=== PATIENT | male | born 1950 | race Caucasian/White ===

== ENCOUNTER 2016-09-17 14:53 | Inpatient (IN) | payer MEDICARE ==
[~2016-09-17] VITALS: Ht 170.2 cm; Wt 98.0 kg
[2016-09-18] MEDS ORDERED: ASPI81CH37 CHEW (09:04)
[2016-09-18] MEDS ORDERED: CHLO25TA2 PO (09:16)
[2016-09-18] MEDS ORDERED: LISI40TA PO (09:16)
[2016-10-05] MEDS ORDERED: POVIDONE IODINE 7.5% SCRUB 118 ML BOTTLE TOP SCH (05:30)
[2016-10-05] MEDS ORDERED: CHLORHEXIDINE GLUCONATE 4% SOLN 120 ML BTL TOP SCH (05:30)
[2016-10-05] MEDS ORDERED: INSULIN HUMAN REGULAR 1,000 UNITS/10 ML VIAL SQ PRN (05:45)
[2016-10-05] MEDS ORDERED: METOPROLOL TARTRATE 25 MG TAB PO PRN (05:45)
[2016-10-05 05:46] VITALS: BP 151/81; PULSE 92; RESP 16; TEMP 100; O2SAT 95
[2016-10-05] MEDS ORDERED: DEXAMETHASONE SOD PHOS 20 MG/5 ML VIAL IV SCH (06:00)
[2016-10-05] MEDS ORDERED: VANCOMYCIN 1000 MG/NS 250 ML (for <70 kg) IV SCH ×2 (06:00)
[2016-10-05] MEDS ORDERED: ceFAZolin 2 GM PREMIX 50 ML IV SCH (06:00)
[2016-10-05] MEDS ORDERED: GENTAMICIN SULFATE 80 MG/2 ML VIAL ONE (06:03)
[2016-10-05] MEDS ORDERED: FAMOTIDINE 20 MG/2 ML VIAL ONE (06:35)
[2016-10-05] MEDS ORDERED: DEXAMETHASONE SOD PHOS 4 MG/ML VIAL ONE (06:35)
[2016-10-05] MEDS ORDERED: ACETAMINOPHEN 1000 MG/100 ML VIAL IV ONE (06:47)
[2016-10-05] MEDS ORDERED: SODIUM CHLORIDE 0.9% IV SCH (07:00)
[2016-10-05] MEDS ORDERED: ROPIVACAINE PERI-ARTICULAR INJECTION. PERIART SCH ×5 (07:00)
[2016-10-05] MEDS ORDERED: SODIUM CHLORID 0.9% 500 ML IV SCH (07:00)
[2016-10-05] MEDS ORDERED: TRANEXAMIC PERI-ARTICULAR 3,000 MG/NS 100 ML P-ARTICULR SCH ×2 (07:00)
[2016-10-05] MEDS ORDERED: EXPAREL PERI-ARTICULAR INJECTION (TOTAL VOL. 60 ML) P-ARTICULR SCH ×2 (07:00)
[2016-10-05] MEDS ORDERED: LACTATED RINGER'S 1000 ML IV SCH (07:00)
[2016-10-05] MEDS ORDERED: TRANEXAMIC ACID IV SCH (07:00)
[2016-10-05] MEDS ORDERED: SODIUM CHLORIDE 0.9% FLUSH 5 ML FLUSH IVF PRN (07:15)
[2016-10-05] MEDS ORDERED: MAGNESIUM HYDROXIDE SUSP 30 ML CUP PO PRN (07:15)
[2016-10-05] MEDS ORDERED: ACETAMINOPHEN/HYDROcodone 325 MG/7.5 MG TAB PO PRN (07:15)
[2016-10-05] MEDS ORDERED: ZOLPIDEM TARTRATE 5 MG TAB PO PRN (07:15)
[2016-10-05] MEDS ORDERED: BISACODYL 10 MG SUPP PR PRN (07:15)
[2016-10-05] MEDS ORDERED: NALOXONE HCL 0.4 MG/ML AMP IV PRN (07:15)
[2016-10-05] MEDS ORDERED: diphenhydrAMINE HCL 50 MG/ML VIAL IV PRN (07:15)
[2016-10-05] MEDS ORDERED: Post-op Orders (for Pharmacy) MISC XX ONE (07:15)
[2016-10-05] MEDS ORDERED: ALUMINUM/MAGNESIUM/SIMETH 30 ML CUP PO PRN (07:15)
[2016-10-05] MEDS ORDERED: ONDANSETRON HCL 4 MG/2 ML VIAL IVP PRN (07:15)
[2016-10-05] MEDS ORDERED: MORPHINE SULFATE 4 MG/ML INJ IV PUSH PRN (07:15)
[2016-10-05] MEDS ORDERED: HYDR-3288 PO (07:17)
[2016-10-05] MEDS ORDERED: APIX2.5T PO (07:17)
[2016-10-05] MEDS ORDERED: LISINOPRIL 20 MG TAB PO SCH (09:00)
[2016-10-05] MEDS ORDERED: NON-FORMULARY DRUG (Chlorthalidone 25 MG) PO SCH (09:00)
[2016-10-05] MEDS: SODIUM CHLORIDE 0.9% FLUSH 5 ML FLUSH IVF SCH ×2 (09:00→21:00)
[2016-10-05] MEDS ORDERED: MIDAZOLAM HCL 2 MG/2 ML VIAL ONE (09:23)
[2016-10-05] MEDS ORDERED: fentaNYL CITRATE 250 MCG/5 ML AMP ONE (09:23)
[2016-10-05] MEDS: SODIUM CHLOR 0.9% 1000 ML INJ 1,000 ML IV SCH ×2 (09:30→21:11)
[2016-10-05] MEDS ORDERED: DO NOT ADM ANY ANTICOAGULANT DRUGS XX PRN (09:45)
--- NOTE | 2016-10-05 09:45 | RADRPT ---
EXAM DATE/TIME: 10/05/2016 07:29 [facility] COMPARISON: No previous studies available for comparison. INDICATIONS : Post-op total left hip arthroplasty. MEDICAL HISTORY : None. SURGICAL HISTORY : None. ENCOUNTER: Initial ACUITY: 1 day PAIN SCORE: Non-responsive. LOCATION: Left hip. FINDINGS: AP and oblique views of the left hip were obtained and demonstrate the patient is status post arthrop lasty. The femoral and acetabular components are intact and in normal alignment. There is mild overly ing artifact. CONCLUSION: Status post left hip arthroplasty. Rene Gannon MD on October 05, 2016 at 9:43 Board Certified Radiologist. This report was verified electronically.
[2016-10-05] MEDS ORDERED: *morphine SULFATE 8 MG/ML PERIprocedure ONLY ONE (10:03)
[2016-10-05] MEDS ORDERED: BACITRACIN TOP OINT 15 GM TUBE ONE (10:14)
--- NOTE | 2016-10-05 10:42 | RADRPT ---
EXAM DATE/TIME: 10/05/2016 09:29 [facility] COMPARISON: No previous studies available for comparison. INDICATIONS : Post Op. Left hip surgery MEDICAL HISTORY : None. SURGICAL HISTORY : None. ENCOUNTER: Initial ACUITY: 1 day PAIN SCORE: 0/10 LOCATION: Left hip and pelvis FINDINGS: Examination of the left hip was performed with AP Pelvis. Left total hip arthroplasty. Both the femor al and acetabular components are appropriately positioned without dislocation. There is some degenera tive osteoarthritic changes in the right hip. Degenerative spurring the SI joints bilaterally with de generative disc disease in the lower lumbar spine. CONCLUSION: Left total hip arthroplasty is radiographically intact without fracture or dislocation. Quang Moyer MD on October 05, 2016 at 10:39 Board Certified Radiologist. This report was verified electronically.
[2016-10-05 11:00] VITALS: BP 126/70; PULSE 83; RESP 15; TEMP 98; O2SAT 95
[2016-10-05 12:00] VITALS: O2SAT 96
[2016-10-05] MEDS ORDERED: PROPOFOL 200 MG/20 ML AMP IV ONE (12:58)
[2016-10-05] MEDS ORDERED: LACTATED RINGER'S 1000 ML INJ 1,000 ML IV ONE (12:59)
[2016-10-05] MEDS ORDERED: NEOSTIGMINE 3 MG/3 ML SYR IV ONE (12:59)
[2016-10-05] MEDS ORDERED: ONDANSETRON HCL 4 MG/2 ML VIAL IV PUSH ONE (12:59)
[2016-10-05] MEDS: SENNOSIDES 8.6 MG TAB PO SCH (15:30)
[2016-10-05] MEDS ORDERED: ENALAPRILAT 1.25 MG/ML VIAL IV PUSH PRN (15:30)
[2016-10-05 16:20] VITALS: BP 106/62; PULSE 92; RESP 16; TEMP 98.5; O2SAT 93
--- NOTE | 2016-10-05 17:45 | PD.CONS ---
HPI Service [facility] Consult Requested By Dr. Gonzalez. Reason for Consult Medical management Primary Care Physician Pablo Fernandez M.D. Diagnoses: History of Present Illness The patient is a 66-year-old male who is presenting to the hospital for elective left hip replacement. 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 He says once he had an MRI of his spine and there is an abnormality found in his left hip. One year ago the patient says that his neighbor's dog hit his leg and he fell down and his left knee swelled up. Since that time he has been having increased pain in his left hip. The patient says that he followed with Dr. Gonzalez and imaging 2 weeks ago showed bone-on- bone in his left hip. The patient says recently the pain level while ambulating with a 12 out of 10 in severity. He uses a walker with ambulation. He has been taking Aleve for pain control. He does not like to take any narcotic medications. The patient had the procedure this morning and tolerated it well. He is not in any pain at this time. He is hopeful to go home tomorrow. Review of Systems Respiratory: DENIES: Shortness of breath Cardiovascular: DENIES: Chest pain, Dyspnea on Exertion, Lower Extremity Edema Gastrointestinal: DENIES: Constipation, Diarrhea Genitourinary: DENIES: Dysuria Musculoskeletal: COMPLAINS OF: Joint pain, Muscle aches, Stiffness, Joint Swelling, Back pain Integumentary: DENIES: Rash Neurologic: COMPLAINS OF: Abnormal gait Past Family Social History Allergies: Coded Allergies: No Known Allergies (Unverified , 10/05/16) Past Medical History Hypertension Spinal stenosis Osteoarthritis Macular degeneration Active Ordered Medications Current Medications Medications (Trade) Dose Ordered Sig/Yelena Route Start Time Stop Time Status Last Admin (Betadine 7.5% Scrub) 1 applic ONCE TOP 10/05/16 05:30 10/08/16 05:29 (Hibiclens 4% Top Soln) 1 applic ONCE TOP 10/05/16 05:30 10/08/16 05:29 Non-Formulary Medication 25 mg 25 mg DAILY PO 10/05/16 09:00 Hold (NS 1000 ml Inj) 1,000 ml @ 100 mls/hr Q10H IV 10/05/16 09:00 10/05/16 09:30 (NS Flush) 2 ml UNSCH PRN IVF 10/05/16 07:15 IV Flush 2 ml 2 ml BID IVF 10/05/16 09:00 (Ancef Inj/NS Inj) 100 ml @ 200 mls/hr Q6H IV 10/05/16 12:00 10/06/16 00:29 10/05/16 11:26 (Lovenox Inj) 40 mg Q24H SQ 10/06/16 08:00 10/15/16 08:01 (Morphine Inj) 3 mg Q3H PRN IV PUSH 10/05/16 07:15 ([place] 7.5-325 Mg) 1 tab Q4H PRN PO 10/05/16 07:15 ([place] 7.5-325 Mg) 2 tab Q4H PRN PO 10/05/16 07:15 (Theragran M Tab) 1 tab BID PO 10/06/16 21:00 12/05/16 20:59 (Zofran Inj) 4 mg Q6H PRN IVP 10/05/16 07:15 (Colace) 100 mg BID PO 10/06/16 21:00 (Mag-Al Plus Susp Liq) 30 ml Q6H PRN PO 10/05/16 07:15 (Ambien) 5 mg HS PRN PO 10/05/16 07:15 (Dulcolax Supp) 10 mg DAILY PRN [place] 10/05/16 07:15 (Milk Of Magnesia Liq) 30 ml DAILY PRN PO 10/05/16 07:15 (Narcan Inj) 0.4 mg UNSCH PRN IV 10/05/16 07:15 (Benadryl Inj) 25 mg Q6H PRN IV 10/05/16 07:15 Miscellaneous Information ALL NURSING DEPARTME... UNSCH PRN XX 10/05/16 09:45 10/06/16 09:44 (Prinivil) 40 mg DAILY PO 10/06/16 09:00 (Senokot) 17.2 mg DAILY PO 10/05/16 15:30 (Vasotec Inj) 1.25 mg Q6H PRN IV PUSH 10/05/16 15:30 Family History The patient is unsure about his family history. Social History The patient drinks one rum and Coke daily. He has an occasional beer. He does not smoke or use illicit substances. Physical Exam Vital Signs Vital Signs Date Time Temp Pulse Resp B/P Pulse Ox O2 Delivery O2 Flow Rate FiO2 10/05/16 12:00 96 21 10/05/16 11:00 98.0 83 15 126/70 95 10/05/16 10:30 97.8 72 15 123/66 96 Nasal Cannula 2 10/05/16 10:15 70 15 121/68 95 Nasal Cannula 2 10/05/16 10:00 69 15 116/67 94 Nasal Cannula 2 10/05/16 09:45 67 14 111/62 93 Nasal Cannula 2 10/05/16 09:15 69 14 106/59 98 Simple Mask 8 10/05/16 09:12 97.9 65 14 102/52 94 Simple Mask 8 10/05/16 05:46 100.0 92 16 151/81 95 Physical Exam GENERAL: This is a well-nourished, well-developed patient, in no apparent distress. SKIN: No rashes, ecchymoses or lesions. Cool and dry. HEAD: Atraumatic. Normocephalic. No temporal or scalp tenderness. EYES: Pupils equal round and reactive. Extraocular motions intact. No scleral icterus. No injection or drainage. ENT: Nose without bleeding, purulent drainage or septal hematoma. Throat without erythema, tonsillar hypertrophy or exudate. Uvula midline. Airway patent. NECK: Trachea midline. No JVD or lymphadenopathy. Supple, nontender, no meningeal signs. CARDIOVASCULAR: Regular rate and rhythm without murmurs, gallops, or rubs. RESPIRATORY: Clear to auscultation. Breath sounds equal bilaterally. No wheezes , rales, or rhonchi. GASTROINTESTINAL: Abdomen soft, non-tender, nondistended. No hepato-splenomegaly , or palpable masses. No guarding. MUSCULOSKELETAL: Left thigh slightly tender to palpation with bandage in place. No lower extremity edema. NEUROLOGICAL: Awake and alert. Cranial nerves II through XII intact. Motor and sensory grossly within normal limits. Five out of 5 muscle strength in all muscle groups. Normal speech. PSYCH: Mood and affect appropriate. Laboratory Laboratory Tests Test 10/05/16 06:00 Blood Type A POSITIVE Antibody Screen NEGATIVE Blood Bank Comment Imaging Last Impressions Hip and Pelvis X-Ray 10/05/16 0714 Signed Impressions: Service Date/Time: Wednesday, October 05, 2016 09:29 - CONCLUSION: Left total hip arthroplasty is radiographically intact without fracture or dislocation. Quang Moyer MD Hip X-Ray 10/05/16 0000 Signed Impressions: Service Date/Time: Wednesday, October 05, 2016 07:29 - CONCLUSION: Status post left hip arthroplasty. Rene Gannon MD Assessment and Plan Assessment and Plan Severe left hip arthritis Status post left hip replacement 10/05/16. The patient tolerated the procedure well. - Pain control with a bowel regimen. - Physical therapy. - Anticoagulation, weightbearing and wound care per orthopedic surgery. - Incentive spirometry. - check basic labs in am. Hypertension Blood pressure well controlled at this time. - Resume home medications. - Vasotec as needed. PPx: Per orthopedic surgery. Discussed Condition With Patient, nurses. Rene Todd DO Oct 05, 2016 17:45
[2016-10-05 20:40] VITALS: BP 103/50; PULSE 85; RESP 17; TEMP 98.9; O2SAT 93
[2016-10-06 00:21] VITALS: BP 110/61; PULSE 83; RESP 18; TEMP 98.6; O2SAT 94
[2016-10-06 01:36] VITALS: O2SAT 94
[2016-10-06] MEDS: SODIUM CHLOR 0.9% 1000 ML INJ 1,000 ML IV SCH (04:10)
[2016-10-06 04:48] VITALS: BP 145/80; PULSE 94; RESP 18; TEMP 99.6; O2SAT 93
[2016-10-06] MEDS: ACETAMINOPHEN/HYDROcodone 325 MG/7.5 MG TAB PO PRN ×2 (04:58→05:53)
[2016-10-06 08:00] VITALS: O2SAT 96
[2016-10-06] MEDS ORDERED: ENOXAPARIN SODIUM 40 MG/0.4 ML SYRINGE SQ SCH (08:00)
[2016-10-06 08:19] LABS: HEMATOCRIT 33.2 % (39.0-51.0); MEAN CORPUSCULAR HEMOGLOBIN 31.8 PG (27.0-34.0); MEAN CORPUSCULAR HGB CONC 34.9 % (32.0-36.0); PLATELET COUNT 155 TH/MM3 (150-450); RED BLOOD COUNT 3.65 MIL/MM3 (4.50-5.90); RED CELL DISTRIBUTION WIDTH 13.2 % (11.6-17.2); WHITE BLOOD COUNT 16.9 TH/MM3 (4.0-11.0)
[2016-10-06 08:24] LABS: REVIEW FLAG FINAL
[2016-10-06 08:34] VITALS: BP 152/72; PULSE 86; RESP 17; TEMP 98.9; O2SAT 93
[2016-10-06 08:48] LABS: MAGNESIUM 1.9 MG/DL (1.5-2.5); POTASSIUM 3.9 MEQ/L (3.5-5.1)
--- NOTE | 2016-10-06 08:49 | PD.ORT.PN ---
Subjective Post Op Day #: 1 Subjective Remarks pain under control. ready to go home. Objective Vitals Vital Signs Date Time Temp Pulse Resp B/P Pulse Ox O2 Delivery O2 Flow Rate FiO2 10/06/16 04:48 99.6 94 18 145/80 93 10/06/16 01:36 94 10/06/16 00:21 98.6 83 18 110/61 94 10/05/16 20:40 98.9 85 17 103/50 93 10/05/16 16:20 98.5 92 16 106/62 93 10/05/16 12:00 96 21 10/05/16 11:00 98.0 83 15 126/70 95 10/05/16 10:30 97.8 72 15 123/66 96 Nasal Cannula 2 10/05/16 10:15 70 15 121/68 95 Nasal Cannula 2 10/05/16 10:00 69 15 116/67 94 Nasal Cannula 2 10/05/16 09:45 67 14 111/62 93 Nasal Cannula 2 10/05/16 09:15 69 14 106/59 98 Simple Mask 8 10/05/16 09:12 97.9 65 14 102/52 94 Simple Mask 8 I/O 10/05/16 10/05/16 10/05/16 10/06/16 10/06/16 10/06/16 07:00 15:00 23:00 07:00 15:00 23:00 Intake Total 1940 ml 480 ml 480 ml Output Total 1700 ml 700 ml 1750 ml Balance 240 ml -220 ml -1270 ml Intake Oral 640 ml 480 ml 480 ml IV Total 100 ml Other 1200 ml Output Urine Total 1100 ml 700 ml 1750 ml Estimated Blood Loss 600 ml # Voids 0 # Bowel Movements 0 0 0 Result Diagram: 10/06/16 0717 Objective Remarks in bed, nad incision no erythema, no drainage neg homans nvi Assessment & Plan Ortho Post Op Day #: 1 Problem List: Assessment and Plan s/p L APRYL anterior approach wbat daily dressing changes lovenox - d/c on Eliquis d/c planning home - wants to start OP PT cleared for d/c today f/up 2 weeks Lennox Jiménez Oct 06, 2016 08:49
--- NOTE | 2016-10-06 08:50 | HHI.DCPOC ---
Discharge Care Plan Diagnosis: (1) Primary localized osteoarthrosis, pelvic region and thigh Your Health Problems Are: Difficulty with ADL Goals to Promote Your Health * To prevent worsening of your condition and complications * To maintain your health at the optimal level Directions to Meet Your Goals Take your medications as prescribed Follow your dietary instruction Follow activity as directed Keep your appointments as scheduled Take your immunizations and boosters as scheduled If your symptoms worsen call your PCP, if no PCP go to Urgent Care Center or Emergency Room Smoking is Dangerous to Your Health. Avoid second hand smoke Call the 24-hour hour crisis hotline for domestic abuse at Lennox Jiménez Oct 06, 2016 08:50
--- NOTE | 2016-10-06 08:51 | HHI.FF ---
Face to Face Verification Diagnosis: (1) Primary localized osteoarthrosis, pelvic region and thigh Physical Therapy Gait training, Safety evaluation, Transfer training, bed to chair Hip: Total hip, Protocol: Left, Progress to weight bearing Left LE Weight Bearing: WB as tolerated Nursing RN: 3 days/week x 2 weeks Nursing: Dressing changes Dressing Changes: Daily dressing change I have seen patient Rene Turcios on 10/06/16. My clinical findings support the need for the requested home health care services because: Limited ability to care for self High risk of falls I certify that my clinical findings support that this patient is homebound because: Post-op weakness Unsteady gait/balance Lennox Jiménez Oct 06, 2016 08:51
[2016-10-06] MEDS ORDERED: WALKER WHEELS/F1 MIS (08:52)
[2016-10-06] MEDS ORDERED: COMMODE 3-IN-11 MIS (08:52)
[2016-10-06] MEDS ORDERED: LISINOPRIL 20 MG TAB PO SCH (09:00)
[2016-10-06] MEDS: SODIUM CHLORIDE 0.9% FLUSH 5 ML FLUSH IVF SCH (09:00)
[2016-10-06] MEDS: SENNOSIDES 8.6 MG TAB PO SCH (09:06)
--- NOTE | 2016-10-06 09:18 | HHI.PR ---
Subjective Remarks The patient was resting comfortably in bed. He was anxious to go home. He said he took a pain pill overnight and is feeling well. No acute complaints. No fever. No shortness of breath or cough. No discomfort with urination. Objective Vitals Vital Signs Date Time Temp Pulse Resp B/P Pulse Ox O2 Delivery O2 Flow Rate FiO2 10/06/16 04:48 99.6 94 18 145/80 93 10/06/16 01:36 94 10/06/16 00:21 98.6 83 18 110/61 94 10/05/16 20:40 98.9 85 17 103/50 93 10/05/16 16:20 98.5 92 16 106/62 93 10/05/16 12:00 96 21 10/05/16 11:00 98.0 83 15 126/70 95 10/05/16 10:30 97.8 72 15 123/66 96 Nasal Cannula 2 10/05/16 10:15 70 15 121/68 95 Nasal Cannula 2 10/05/16 10:00 69 15 116/67 94 Nasal Cannula 2 10/05/16 09:45 67 14 111/62 93 Nasal Cannula 2 I/O 10/05/16 10/05/16 10/05/16 10/06/16 10/06/16 10/06/16 07:00 15:00 23:00 07:00 15:00 23:00 Intake Total 1940 ml 480 ml 480 ml Output Total 1700 ml 700 ml 1750 ml Balance 240 ml -220 ml -1270 ml Intake Oral 640 ml 480 ml 480 ml IV Total 100 ml Other 1200 ml Output Urine Total 1100 ml 700 ml 1750 ml Estimated Blood Loss 600 ml # Voids 0 # Bowel Movements 0 0 0 Result Diagram: 10/06/1671610/06/1617 Imaging Last Impressions Hip and Pelvis X-Ray 10/05/1614 Signed Impressions: Service Date/Time: Wednesday, October 05, 2016 09:29 - CONCLUSION: Left total hip arthroplasty is radiographically intact without fracture or dislocation. Quang Moyer MD Hip X-Ray 10/05/16 0000 Signed Impressions: Service Date/Time: Wednesday, October 05, 2016 07:29 - CONCLUSION: Status post left hip arthroplasty. Rene Gannon MD Objective Remarks GENERAL: This is a well-nourished, well-developed patient, in no apparent distress. SKIN: No rashes, ecchymoses or lesions. Cool and dry. HEAD: Atraumatic. Normocephalic. No temporal or scalp tenderness. EYES: Pupils equal round and reactive. Extraocular motions intact. No scleral icterus. No injection or drainage. ENT: Nose without bleeding, purulent drainage or septal hematoma. Throat without erythema, tonsillar hypertrophy or exudate. Uvula midline. Airway patent. NECK: Trachea midline. No JVD or lymphadenopathy. Supple, nontender, no meningeal signs. CARDIOVASCULAR: Regular rate and rhythm without murmurs, gallops, or rubs. RESPIRATORY: Clear to auscultation. Breath sounds equal bilaterally. No wheezes , rales, or rhonchi. GASTROINTESTINAL: Abdomen soft, non-tender, nondistended. No hepato-splenomegaly , or palpable masses. No guarding. MUSCULOSKELETAL: Left thigh slightly tender to palpation with bandage in place. No lower extremity edema. NEUROLOGICAL: Awake and alert. Cranial nerves II through XII intact. Motor and sensory grossly within normal limits. Five out of 5 muscle strength in all muscle groups. Normal speech. PSYCH: Mood and affect appropriate. Procedures Left hip arthroplasty. Medications and IVs Current Medications Medications (Trade) Dose Ordered Sig/Yelena Route Start Time Stop Time Status Last Admin (Betadine 7.5% Scrub) 1 applic ONCE TOP 10/05/16 05:30 10/08/16 05:29 (Hibiclens 4% Top Soln) 1 applic ONCE TOP 10/05/16 05:30 10/08/16 05:29 Non-Formulary Medication 25 mg 25 mg DAILY PO 10/05/16 09:00 Hold (NS 1000 ml Inj) 1,000 ml @ 100 mls/hr Q10H IV 10/05/16 09:00 10/06/16 04:10 (NS Flush) 2 ml UNSCH PRN IVF 10/05/16 07:15 (NS Flush) 2 ml BID IVF 10/05/16 09:00 10/05/16 09:00 (Lovenox Inj) 40 mg Q24H SQ 10/06/16 08:00 10/15/16 08:01 10/06/16 09:06 (Morphine Inj) 3 mg Q3H PRN IV PUSH 10/05/16 07:15 ([place] 7.5-325 Mg) 1 tab Q4H PRN PO 10/05/16 07:15 10/06/16 05:53 (Alpha 7.5-325 Mg) 2 tab Q4H PRN PO 10/05/16 07:15 (Theragran M Tab) 1 tab BID PO 10/06/16 21:00 12/05/16 20:59 (Zofran Inj) 4 mg Q6H PRN IVP 10/05/16 07:15 (Colace) 100 mg BID PO 10/06/16 21:00 (Mag-Al Plus Susp Liq) 30 ml Q6H PRN PO 10/05/16 07:15 (Ambien) 5 mg HS PRN PO 10/05/16 07:15 (Dulcolax Supp) 10 mg DAILY PRN [place] 10/05/16 07:15 (Milk Of Magnesia Liq) 30 ml DAILY PRN PO 10/05/16 07:15 (Narcan Inj) 0.4 mg UNSCH PRN IV 10/05/16 07:15 (Benadryl Inj) 25 mg Q6H PRN IV 10/05/16 07:15 Miscellaneous Information ALL NURSING DEPARTME... UNSCH PRN XX 10/05/16 09:45 10/06/16 09:44 (Prinivil) 40 mg DAILY PO 10/06/16 09:00 10/06/16 09:07 (Senokot) 17.2 mg DAILY PO 10/05/16 15:30 10/06/16 09:06 (Vasotec Inj) 1.25 mg Q6H PRN IV PUSH 10/05/16 15:30 A/P Assessment and Plan Severe left hip arthritis Status post left hip replacement 10/05/16. The patient tolerated the procedure well. - Pain control with a bowel regimen. - Physical therapy. - Anticoagulation, weightbearing and wound care per orthopedic surgery. - Incentive spirometry. - d/c home with [facility] per primary. Hypertension Blood pressure well controlled at this time. - Resume home medications. - Vasotec as needed. Leukocytosis Likely a stress reaction. No evidence of fever. The patient is asymptomatic. - Outpatient follow-up. PPx: Per orthopedic surgery. Rene Todd DO Oct 06, 2016 09:18
[2016-10-06] MEDS ORDERED: MAGNESIUM HYDROXIDE SUSP 30 ML CUP PO SCH (09:45)
--- NOTE | 2016-10-06 15:34 | MP ---
cc: CLARA RUSSO DATE OF SURGERY: 10/05/2016 PREOPERATIVE DIAGNOSIS Left hip osteoarthritis. POSTOPERATIVE DIAGNOSIS Left hip osteoarthritis. PROCEDURE Left total hip arthroplasty. SURGEON Dr. Clara Russo SOUND EFFECTS PERSON ALLA Neely ANESTHESIA General. ESTIMATED BLOOD LOSS 200 cc. COMPLICATIONS None. IMPLANTS USED DePuy Corail size 12 Press-Fit standard offset femoral stem, size 54 solid [place] Gription cup, size 36 mm neutral highly crosslinked polyethylene liner, size 36 mm ceramic head, size +5 neck. JUSTIFICATION This patient is a 66-year-old male with a history of severe end-stage osteoarthritis involving the left hip. He has severe disabling pain with standing, walking, ambulation, weightbearing activities, even severe pain at rest. He has failed greater than three months of nonoperative conservative treatment to include medication, therapy, injections, ambulatory assisted aids, home exercise program and activity modification. X-rays of the left hip revealed severe end-stage osteoarthritis with joint space narrowing, subchondral sclerosis, subchondral cysts, osteophyte formation and subluxation. The patient was counseled as to the risks, benefits and alternatives to a total hip arthroplasty. The risks discussed include but are not limited to anesthesia, bleeding, infection, damage to nerves and blood vessels, pain, stiffness, dislocation, leg length discrepancies, blood clots, pulmonary embolism and even . The patient's pain is severe. He favored the benefits over the risks and did wish to proceed with surgery. PROCEDURE Written consent was obtained. The patient was identified by name, taken to the operating room and placed supine on the operating table. General anesthesia was administered as well as two grams of IV Ancef and one gram of IV vancomycin. The left and right feet were placed in padded traction boots. The left hip and left lower extremity were prepped and draped using isopropyl alcohol, Hibiclens solution and ChloraPrep solution. A longitudinal incision made over the anterolateral aspect of the left hip. The fascial layer was incised. Dissection was carried over the tensor fascia maximiliano, beneath the rectus femoris to allow exposure of the anterior hip capsule. A capsulotomy incision was performed. An oscillating saw was used to perform a femoral neck cut. The osteoarthritic femoral head and neck component was removed. A 10 blade scalpel was use to excise the labrum. Sequential reaming began at size 47 mm and was carried through to size 54 mm. Subsequently a solid [place] Gription cup was implanted in approximately 45 degrees of abduction, 10 degrees of anteversion. There was good purchase and fixation after insertion of the cup. A screw hole eliminator was placed followed by the neutral liner. The liner was impacted in place and tested for stability. Attention was turned to the femur where the leg was externally rotated, adducted and extended down to the ground. The capsule was released off the inner surface of the greater trochanter to allow for elevation and lateralization of the femur. A box cutting osteotome was used to gain entrance into the intramedullary canal of the femur. This was followed by a canal finder and sequential broaching up to size 12. A calcar planer was used to plane the calcar. Trial head and neck combinations were evaluated and the final components implanted. With the final implants the leg could be rotated externally 70 degrees and extended all the way down to the ground without evidence of anterior dislocation or impingement. Fluoroscopic imaging showed appropriate implantation of the implants. The surgical wound was thoroughly irrigated with sterile saline solution. The fascia layer was closed with #1 Vicryl suture, the subcutaneous layer with 2-0 Vicryl suture, and the skin was closed with Dermabond. Sterile dressing was applied. The patient tolerated the procedure well with no intraoperative complications noted. Freddie Jiménez, physician early childhood assistant certified, was present during the entire procedure to include patient positioning and the procedure itself. The medical necessity of the physician early childhood assistant was indicated in this case due to the complexity of the procedure. He assisted with appropriate manipulation of the leg and also retraction of muscle, tendon, bone and neurovascular structures. He assisted with both preparation of bone and implantation of the prosthetic replacement. Clara Russo MD JWM/NEHA /8:59 AM /3:20 PM
[2016-10-06] MEDS ORDERED: MULTIVITAMINS/MINERALS THERAPEUTIC TAB PO SCH (21:00)
[2016-10-06] MEDS ORDERED: SENNOSIDES 8.6 MG TAB PO SCH (21:00)
[2016-10-06] MEDS ORDERED: DOCUSATE SODIUM 100 MG CAP PO SCH (21:00)
--- NOTE | 2016-10-12 07:36 | MD ---
cc: CLARA GONZALEZ M.D. ADMISSION DATE: 10/05/2016 DISCHARGE DATE: 10/06/2016 ADMISSION DIAGNOSIS Severe degenerative osteoarthritis left hip. DISCHARGE DIAGNOSIS Severe degenerative osteoarthritis left hip. HISTORY OF PRESENT ILLNESS Mr. Turcios is a 66-year-old male who presented to the [facility] for evaluation by Dr. Clara Gonzalez regarding his severe and progressive left hip pain. The patient states that the pain has been progressive for many years but has become severe over the last year. He has been treated for this ailment for greater than one year duration. He notes currently the pain is inhibiting his activities of daily living and restricting his range of motion of the left hip. He notes his pain is aggravated by weightbearing activity and he has no significant alleviating factors at this point in time. In the past he has tried medications, assistive devices, physical therapy and home exercise program as well as cortisone injection without relief of symptoms. He does have x-ray evidence of severe degenerative osteoarthritis of the left hip. While in the office the patient was counseled on his diagnosis and treatment options, risks, benefits and indications discussed in great detail. The patient did elect to proceed with surgical intervention to include a left total hip arthroplasty. Date of surgery: 10/05/2016, left total hip arthroplasty anterior approach. Postop after surgery the patient admitted to [facility] where he received appropriate medical management, pain control, DVT prophylaxis as well as physical therapy. Discharge: Once being discharged from the hospital, the patient is cleared to go home. He is in stable condition. He can weightbear as tolerated and is to receive daily dressing changes. DISCHARGE INSTRUCTIONS: The patient has been instructed on proper wound care management. The patient will be provided an appointment to start outpatient physical therapy as requested. DISCHARGE MEDICATIONS: Patient has been provided prescriptions for pain medicine as well as DVT prophylaxis medication. He has also been provided a follow-up appointment see Dr. Clara Gonzalez in the office approximately 2 weeks from his date of surgery. He has asked appropriate questions which have been answered. The patient has been discharged. Dictated by: ALLA Cooper. MD KELSIE Wade/BETSEY /12:35 PM 7:34 AM
== END 2016-10-06 11:37 | disposition home or self-care (01) | DRG 470 ==
LOC: HSDI 10-05 05:05 → N06A 10-05 10:46
PROVIDERS: ADMIT Orthopaedic Surgery Sports Medicine; ATTEND Orthopaedic Surgery Sports Medicine
PROC: 0SRB04A Replacement of Left Hip Joint with Ceramic on Polyethylene Synthetic Substitute, Uncemented, Open Approach (ICD-10-PCS; principal; 2016-10-05 07:03)
DX: M16.12 Unilateral primary osteoarthritis, left hip (principal); S73.002A Unspecified subluxation of left hip, initial encounter; I10 Essential (primary) hypertension; M25.752 Osteophyte, left hip; H35.30 Unspecified macular degeneration; M48.00 Spinal stenosis, site unspecified; D72.829 Elevated white blood cell count, unspecified
CPT/HCPCS: 73502; 76000; 80048; 83735; 85027; 86850; 86900; 86901; 94150; C1776; C9290; J0131; J0690; J1100; J1580; J1650; J2250; J2270; J2405; J2710; J3010; J3370; J7030; J7050; J7120; L1830

== ENCOUNTER → 2016-09-18 | Outpatient (CLI) | payer MEDICARE ==
[~2016-09-18] MED LIST: APIX2.5T PO; ASPI81CH37 CHEW; CHLO25TA2 PO; COMMODE 3-IN-11 MIS; HYDR-3288 PO; LISI40TA PO; WALKER WHEELS/F1 MIS
[2016-09-18 09:53] LABS: AUTOMATED NEUTROPHIL # 5.4 TH/MM3 (1.8-7.7); BASOPHIL # 0.1 TH/MM3 (0-0.2); BASOPHIL % 0.7 % (0.0-2.0); EOSINOPHIL # 0.3 TH/MM3 (0-0.4); EOSINOPHIL % 2.8 % (0.0-4.0); HEMATOCRIT 44.7 % (39.0-51.0); HEMO FLAGS DIFF FINAL; LYMPH % 31.3 % (9.0-44.0); LYMPHOCYTE # 2.9 TH/MM3 (1.0-4.8); MEAN CELL VOLUME 91.9 FL (80.0-100.0); MEAN CORPUSCULAR HEMOGLOBIN 32.7 PG (27.0-34.0); MEAN CORPUSCULAR HGB CONC 35.6 % (32.0-36.0); MONO % 7.6 % (0.0-8.0); NEUT % 57.6 % (16.0-70.0); PLATELET COUNT 204 TH/MM3 (150-450); RED BLOOD COUNT 4.86 MIL/MM3 (4.50-5.90); RED CELL DISTRIBUTION WIDTH 13.5 % (11.6-17.2); WHITE BLOOD COUNT 9.4 TH/MM3 (4.0-11.0)
[2016-09-18 10:01] LABS: BLOOD, URINE NEG (NEG); GLUCOSE,URINE NEG (NEG); HYALINE CAST, URINE 3 /lpf (RARE); KETONE, URINE NEG (NEG); MUCUS URINE FEW /lpf (OCC); NITRITE,URINE NEG (NEG); URINE COLOR YELLOW (YELLW/STRAW)
[2016-09-18 10:05] LABS: APTT (PATIENT) 28.8 SEC (24.3-30.1); PROTHROMBIN TIME - PATIENT 11.6 SEC (9.8-11.6)
--- NOTE | 2016-09-18 10:10 | RADRPT ---
EXAM DATE/TIME: 09/18/2016 09:48 [facility] COMPARISON: No previous studies available for comparison. INDICATIONS : Evaluate for pneumonia, pneumothorax or communicable disease. Pre op for hip -31-57. MEDICAL HISTORY : None. SURGICAL HISTORY : None. ENCOUNTER: Initial ACUITY: 1 day PAIN SCORE: 0/10 LOCATION: Bilateral chest FINDINGS: There is minimal scoliosis midthoracic spine to the right with secondary right sided hypertropic dege nerative spurring and heart aorta and pulmonary vascular normal with clear lung rivera. CONCLUSION: No acute disease. Angel Castle MD on September 18, 2016 at 10:08 Board Certified Radiologist. This report was verified electronically.
[2016-09-18 10:17] LABS: ANION GAP 10 MEQ/L (5-15); AST (GOT) 19 U/L (15-37); BICARBONATE 29.4 MEQ/L (21.0-32.0); BLOOD UREA NITROGEN 25 MG/DL (7-18); CHLORIDE 99 MEQ/L (98-107); GLOMERULAR FILTRATION RATE 59 ML/MIN (>89); GLUCOSE,FASTING 168 MG/DL (74-99); POTASSIUM 3.6 MEQ/L (3.5-5.1); SODIUM (NA) 138 MEQ/L (136-145)
[2016-09-18 10:22] LABS: COMMENT (UR) CULT NOT INDICATED; CULTURE IF INDICATED CULT NOT INDICATED
[2016-09-18 10:23] LABS: ALKALINE PHOSPHATASE 92 U/L (45-117); ALT (GPT) 49 U/L (12-78); TOTAL BILIRUBIN ADULT 0.6 MG/DL (0.2-1.0)
[2016-09-18 10:54] LABS: WESTERGREN SEDIMENTATION RATE 13 mm/hr (0-20)
--- NOTE | 2016-09-18 16:12 | EKG ---
Date Performed: 09/18/2016 Time Performed: 09:24:53 PTAGE: 66 years EKG: Sinus rhythm LEFT BUNDLE BRANCH BLOCK ABNORMAL ECG NO PREVIOUS TRACING DOCTOR: Ovidio Rainey Interpretating Date/Time 09/18/2016 16:11:36
== END ==
LOC: CPRE 08:40
PROVIDERS: ATTEND Orthopaedic Surgery Sports Medicine
DX: Z01.810 Encounter for preprocedural cardiovascular examination (principal); M16.12 Unilateral primary osteoarthritis, left hip; M25.50 Pain in unspecified joint; R94.31 Abnormal electrocardiogram [ECG] [EKG]; Z01.812 Encounter for preprocedural laboratory examination; Z01.818 Encounter for other preprocedural examination; Z79.01 Long term (current) use of anticoagulants; Z96.60 Presence of unspecified orthopedic joint implant
CPT/HCPCS: 36415; 71020; 80053; 81001; 85025; 85610; 85652; 85730; 93005